=== PATIENT | female | born 1950 | race Caucasian/White ===

== ENCOUNTER 2017-10-20 06:41 | Inpatient (IN) | payer MEDICARE, OTHER, SELFPAY ==
[2017-10-20] VITALS (11 sets, daily range): BP systolic 138–155; BP diastolic 68–111; PULSE 76–102; RESP 16–20; TEMP 36.7–37.6; O2SAT 96–98; BMI 36.8; BMI 36.9
--- NOTE | 2017-10-20 06:59 | RAD_ITS ---
STUDY: X-RAY CHEST REASON FOR EXAM: Female, 67 years old. Productive cough since Monday TECHNIQUE: PA and lateral views of the chest. COMPARISON: None. FINDINGS: Lungs are expanded. Left lung is clear, there is subtle opacification the right lung base with an infiltrate noted in the right middle lobe best seen on the lateral view. No demonstrated effusion. Normal size heart. Normal mediastinum and tiffany. Normal visualized pulmonary arteries. Normal visualized aortic arch and descending thoracic aorta. Normal visualized thoracic spine. Normal visualized ribs, clavicles, and shoulders. There is no demonstrated abnormality of the visualized soft tissue structures of the upper abdomen. RAD/Chest PA and Lateral IMPRESSION: Right middle lobe infiltrate without effusion best seen on the lateral view. Follow-up recommended to assure resolution Electronically Signed: Matt Yun MD at 8:11 EDT , Service support ,
--- NOTE | 2017-10-20 07:03 | ED.DCSUM_ITS ---
- ER Visit Summary Date of Service: 10/20/17 Chief Complaint: Cough, fever History of Present Illness: The patient is a 67 F with above complaints for 4 days. She was started on Augmentin 2 days ago from an urgent care. She denies shortness of breath. She feels more weak. She noticed a fever this morning of 100 at home. She has no chest pain. No pleuritic component. No upper respiratory symptoms, rhinorrhea. She is able to ambulate and able to speak in full sentences. Physical Examination: Not appear in acute distress. Moist mucous membranes, no obvious facial deformity. There is postnasal drip and some rhinorrhea. No C-spine tenderness supple neck. Regular rate and rhythm without any obvious murmurs Lungs have coarse sounds mostly on the right, some bronchial breath sounds. She speaking in full sentences without difficulty. Abdomen soft and nontender no guarding or rebound Moves all extremities without any difficulty or pain. Skin does not show any obvious rashes or lesions, no trauma. Alert oriented ?3 with no gross focal deficit Emergency Department Course and Treatment: Patient is found to be febrile, I walked into the room, she was 90% and tachypneic when ambulated her oxygen was 89%, she has been treated for pneumonia at home, I did give her Levaquin in the emergency department I do believe she meets admission criteria. I called the hospitalist for admission. Impression: Immunity acquired pneumonia This note was generated with [employer] dictation software. It may contain incorrect words, spelling, and punctuation that were not noted in review of the chart prior to signing ED Disposition - Plan for ED Patient: Chief Complaint: General Illness Referrals: Meli Todd MD [Primary Care Provider] -
[2017-10-20] MEDS: Ipratropium/Albuterol Sulfate 3 ML AMPUL.NEB INHALATION ×3 (07:15→19:13)
[2017-10-20] MEDS: Ketorolac 15 MG/ML Vial IV (07:33)
[2017-10-20 07:40] LABS: Absolute Neutrophil Count 5.4 X10^3/uL (2.0-7.7); Basophil# 0.02 X10^3/uL; Basophil% 0.3 % (0-1); Eosinophil# 0.15 X10^3/uL; Eosinophils% 2.1 % (0-5); Hematocrit 38.1 % (37-47); Hemoglobin 12.2 g/dl (12.0-15.0); Lymphocyte % 13.8 % (19-41); Mean Corpuscular Hgb 27.1 pg (27.0-32.0); Mean Corpuscular Volume 84.5 fL (81-99); Mean Platelet Vol. 8.8 fl (6.2-12.0); Monocyte# 0.71 X10^3/uL; Monocyte% 9.8 % (0-10); Neutrophil # 5.35 X10^3/uL (2.7-7.7); Neutrophil % 73.9 % (47-70); Platelet Count 301 K/mm3 (150-450); RBC Distribution Width CV 15.1 % (11.6-14.6); Red Blood Count 4.51 M/mm3 (4.2-5.4); White Blood Count 7.2 K/mm3 (4.4-11.0)
[2017-10-20 07:42] LABS: POSITIVE COUNT NO; POSITIVE DIFFERENTIAL NO; POSITIVE MORPHOLOGY NO
[2017-10-20 07:50] LABS: ALB/GLOB Ratio 0.9 RATIO (0.9-2.4); AST(SGOT) 42 U/L (15-37); Alanine Aminotransfer ALT/SGPT 61 U/L (13-56); Albumin, Serum 3.7 g/dL (3.2-5.0); Alkaline Phosphatase 121 U/L (45-117); Anion Gap 10 (5-15); BUN 9 mg/dL (7-18); BUN/Creat Ratio 12.2 RATIO (10-20); Calcium,Total 8.8 mg/dL (8.5-10.1); Chloride 102 mmol/L (98-107); Creatinine, Serum 0.74 mg/dL (0.55-1.02); EST Glomerular Filtration Rate 83 mL/min (>60); Est Glom Filt Rate - Afr Amer 101 mL/min (>60); Estimated Creatinine Clearance 43.92 ml/min; Globulin 4.3 g/dL (2.2-4.2); Glucose 97 mg/dL (74-106); Potassium 3.8 mmol/L (3.5-5.1); Sodium Level 140 mmol/L (136-145)
--- NOTE | 2017-10-20 08:51 | NURSING ---
DR MILIAN CALLED BACK
[2017-10-20] MEDS: levoFLOXacin IV 750 MG/150 ML BAG 100 MG IV (09:15)
--- NOTE | 2017-10-20 09:33 | NURSING ---
MED SURG PNEUMONIA BRADLEY/RUKHSANA
[2017-10-20] MEDS: 0.9% Normal Saline 1,000 ML 100 ML IV ×2 (11:09→20:49)
[2017-10-20] MEDS: Heparin Injection (Vial) 5,000 UNIT/ML VIAL 5000 UNIT SC ×2 (11:09→20:50)
[2017-10-20] MEDS: Benzonatate 100 MG Capsule 200 MG PO ×2 (11:10→20:50)
[2017-10-20] MEDS: Pantoprazole Sodium 40 MG Tablet PO (11:10)
[2017-10-20] MEDS: guaiFENesin 1,200 MG Tablet 1200 MG PO ×2 (12:12→20:50)
--- NOTE | 2017-10-20 15:43 | HP.PCM_ITS ---
Problem List (1) Pneumonia Status: Acute Qualifiers: Laterality: right Lung location: middle lobe of lung (2) Seasonal rhinitis Status: Chronic (3) HTN (hypertension) Status: Chronic (4) GERD (gastroesophageal reflux disease) Status: Chronic History of Present Illness Date of Admission: 10/20/17 Chief Complaint: SOB The patient is a 67 year old F with a PMhx of HTN, GERD, who presents to the ER with c/c of SOB and cough. She has felt ill since Monday. She went to the urgent care and was placed on augmentin, albuterol, and tessalon perles. She unfortunately did not have any improvement. She felt progressively more SOB and continued to have a productive cough with chunky yellow green sputum. She is very fatigued. No hemoptysis. She reports 2 sick contacts - a mother of a child at her daycare has pna, and her grandson has pna. She feels feverish and her temp this AM was 100, prompting her to go to the ER. She was saturating 89% with ambulation in the ER and did not feel comfortable going home. CXR was c/w RML pna. She had some diarrhea yesterday. She has no nausea vomiting or aches. She has never had pna. She is a former smoker - quit in 1993, was a light smoker for 20 years. No asthma/copd. Takes cetirizine for seasonal allergies. [] Past Medical History Past Medical History (Chronic Problems): Chronic Problems Seasonal rhinitis (Chronic) HTN (hypertension) (Chronic) GERD (gastroesophageal reflux disease) (Chronic) Allergies tramadol Allergy (Verified 10/20/17 06:49) Other Home Medications: Ambulatory Orders Medication Instructions Recorded Albuterol Inhaler [Ventolin Hfa 1 puff INHALATION Q4H PRN PRN 10/20/17 (SP)] Amlodipine Besylate [Norvasc] 2.5 mg PO DAILY 10/20/17 Amoxicillin/Potassium Clav [Amox 1 each PO BID 10/20/17 Tr-K Clv 875-125 mg Tab] Benzonatate 200 mg PO TID PRN PRN 10/20/17 Calcium Carbonate [Calcium] 1,200 mg PO DAILY 10/20/17 Cetirizine HCl [Allergy] 10 mg PO DAILY 10/20/17 Cholecalciferol (Vitamin D3) 1,000 unit PO DAILY 10/20/17 [Vitamin D3] Fluticasone 0.05% [Flonase Nasal 1 spray NASAL DAILY 10/20/17 [place]] Multivitamin [Multiple Vitamins] 1 each PO DAILY 10/20/17 Omeprazole 40 mg PO DAILY 10/20/17 Surgical History: total knee arthroplasty, - - BL carpal tunnel release Psychiatric History: No pertinent psych hx 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 Denies: Chills, Weight Change HEENT: Denies: Head Aches, Sinus Congestion, Sinus Drainage Cardiovascular: Denies: Chest Pain, Palpitations Respiratory: Reports: Cough, Shortness of Breath, Shortness of breath at rest, Shortness of breath upon exertion, Sputum production. Denies: Hemoptysis, Pleuritic Pain Gastrointestinal: Reports: Diarrhea. Denies: Abdominal Pain, Nausea, Vomiting Genitourinary: Denies: Dysuria Musculoskeletal: Denies: Joint Pain, Joint Tenderness Skin: Denies: Rash, Wounds Neurological: Denies: Numbness, Tingling, Focal weakness Psychiatric: Denies: Anxiety, Depression, Homicidal Ideations, Suicidal Ideations Hematologic/ Lymphatic: Denies: Easy Bruising, Easy Bleeding VTE Information - Inpt Only VTE Present on Admission: No VTE Mechan Device Prophylaxis: None VTE Pharm Prophylaxis ordered?: Yes Patient Problems: Active and Suspected Problems Pneumonia (Acute) - Physical Exam General: Alert, Oriented x3, Cooperative HEENT: Atraumatic, PERRLA, EOMI, Normocephalic Neck: Supple, No JVD, Negative Carotid Bruits Lungs: Rales, Wheezes Cardiovascular: Regular rate, No murmurs Abdomen: Bowel Sounds Present, Soft, Non Tender Extremities: No edema, Capillary Refill Less than 3 Seconds Skin: No rashes, No breakdown Musculoskeletal: No Tenderness to Palpation of Joints or Extremities Neurological: Cranial nerves II-XII grossly intact Psych/Mental Status: Normal Affect, Appropriate, Alert and oriented to time, place, person, mood and affect Vital Signs Temp Pulse Resp BP Pulse Ox 98.4 F 84 18 138/87 H 98 10/20/17 14:58 10/20/17 14:58 10/20/17 14:58 10/20/17 14:58 10/20/17 14:58 Oxygen Flow Rate (L/min) 2 Oxygen Delivery Method Nasal Cannula Weight: 208 lb 1.862 oz Body Mass Index (BMI) 36.8 Intake and Output for Last 24 Hours 10/18/17 10/19/17 10/20/17 23:59 23:59 23:59 Intake Total 168 / 168 Output Total 200 / 200 Balance -32 / -32 Microbiology Past 72 Hours 10/20/17 10:40 Gram Stain - Final Sputum, Expectorated/Coughed 10/20/17 10:40 Respiratory Panel (PCR) - Final Mucosa - Nose 10/20/17 11:05 Streptococcus pneumoniae Antigen (M - Final Urine, Clean Catch 10/20/17 11:05 Legionella Antigen - Final Urine, Clean Catch Assessment/Plan All Active Problems Pneumonia (Acute) 1. Acute RML CAP - suspect streptococcal. CXR c/w RML pna. 2x sick contacts with pna. In ER no fever or WBC elevation. Check urine antigens, sputum cx, and resp panel. Wheezine and rales on exam. Failed augmentin. Continue IV levaquin. Continue aerosols, mucinex, tessalon perles. Former smoker. No Asthma/COPD. LFTs mildly elevated possibly 2/2 augmentin 2. HTN - norvasc 3. GERD - ppi. 4. Diarrhea - none today, possibly 2/2 augmentin. Add probiotic. DVT ppx: heparin DC planning: ambulate in AM This patient was seen by Gilles Qureshi PA-C under the supervision of Dr. Washington.
--- NOTE | 2017-10-20 16:35 | CASEMGMT ---
YANA CHEN Face to Face with patient for initial transition planning/care coordination assessment. YANA CHEN introduced self and role at [facility]. Patient lying in bed, alert and oriented. Patient willing to participate in assessment and is able to answer all questions appropriately. Care providers, pharmacy, and demographics verified. See link attached. Patient wishes to discharge home, denies need for home health at this time. Patient states she has no further needs or concerns at this time. Patient currently on oxygen, will monitor for need for home oxygen and assist with setup. CM to follow for discharge planning needs that may arise. Disposition Plan: Patient to discharge home with family support and follow-up plans in place.
[2017-10-20] MEDS: Acetaminophen 325 MG Tablet 650 MG PO (20:50)
[2017-10-21] MEDS: Ipratropium/Albuterol Sulfate 3 ML AMPUL.NEB INHALATION ×2 (02:31→07:28)
[2017-10-21 02:32] VITALS: PULSE 79; RESP 16
[2017-10-21 02:45] VITALS: BP 142/83; PULSE 76; RESP 18; TEMP 37.1; O2SAT 95
[2017-10-21] MEDS: 0.9% Normal Saline 1,000 ML 100 ML IV (05:47)
[2017-10-21] MEDS: Benzonatate 100 MG Capsule 200 MG PO (05:47)
[2017-10-21 06:36] LABS: Absolute Lymphocyte Count 1.33 X10^3/ul (0.83-4.51); Basophil# 0.02 X10^3/uL; Basophil% 0.3 % (0-1); Eosinophil# 0.17 X10^3/uL; Eosinophils% 2.8 % (0-5); Hematocrit 34.5 % (37-47); Hemoglobin 11.1 g/dl (12.0-15.0); Lymphocyte # 1.33 X10^3/ul (4.0); Lymphocyte % 21.5 % (19-41); Mean Corp Hgb Conc 32.2 g/gl (32-36); Mean Corpuscular Hgb 27.5 pg (27.0-32.0); Mean Corpuscular Volume 85.4 fL (81-99); Mean Platelet Vol. 8.9 fl (6.2-12.0); Monocyte% 11.3 % (0-10); Neutrophil # 3.95 X10^3/uL (2.7-7.7); Neutrophil % 63.9 % (47-70); Platelet Count 316 K/mm3 (150-450); RBC Distribution Width SD 46.1 fl (35.1-43.9); Red Blood Count 4.04 M/mm3 (4.2-5.4); White Blood Count 6.2 K/mm3 (4.4-11.0)
[2017-10-21 06:37] LABS: POSITIVE COUNT NO; POSITIVE DIFFERENTIAL NO; POSITIVE MORPHOLOGY NO
[2017-10-21 07:28] VITALS: PULSE 75; RESP 16
--- NOTE | 2017-10-21 07:52 | RAD_ITS ---
STUDY: X-RAY CHEST REASON FOR EXAM: Female, 67 years old. SOB / SOA TECHNIQUE: Frontal and lateral views of the chest. COMPARISON: Study done yesterday. FINDINGS: Chronic appearing increased interstitial lung markings. Stable nodularity in the right lower lobe. This may be a nipple shadow. There is no demonstrated pleural abnormality. Streaky density in the right lower lobe has improved. Normal heart size. Normal mediastinum and tiffany. Normal visualized pulmonary arteries. There is atherosclerotic calcification of the aortic arch with tortuosity. There are diffuse degenerative changes of the visualized thoracic spine. There is degenerative osteoarthritis of the bilateral shoulders. There is no demonstrated abnormality of the visualized soft tissue structures of the upper abdomen. RAD/Chest PA and Lateral IMPRESSION: Stable nodularity in the right lower lobe. This may be a nipple shadow. Streaky density in the right lower lobe has improved. Electronically Signed: Nagi Hemphill MD at 8:37 EDT , Service support ,
[2017-10-21 08:09] VITALS: BP 149/84; PULSE 84; RESP 16; TEMP 36.7; O2SAT 96
[2017-10-21] MEDS: Pantoprazole Sodium 40 MG Tablet PO (08:24)
[2017-10-21] MEDS: guaiFENesin 1,200 MG Tablet 1200 MG PO (08:24)
[2017-10-21] MEDS: amLODIPine 2.5 MG Tablet PO (08:24)
--- NOTE | 2017-10-21 09:59 | PCM.DC ---
- Discharge Diagnoses Current Active Problems: Current Active and Chronic Problems Pneumonia (Acute) Seasonal rhinitis (Chronic) HTN (hypertension) (Chronic) GERD (gastroesophageal reflux disease) (Chronic) You will use the following diet at home:: No restrictions Your food should be the consistency of: Regular Your liquids should be the consistency of: Regular/Thin Discharge Activity: Return to Normal Activity Allergies/Adverse Reactions: Allergies tramadol Allergy (Verified 10/20/17 06:49) Other Medications to take at Discharge Amlodipine Besylate [Norvasc] 2.5 mg PO DAILY 10/20/17 Benzonatate 200 mg PO TID PRN PRN 10/20/17 Calcium Carbonate [Calcium] 1,200 mg PO DAILY 10/20/17 Cetirizine HCl [Allergy] 10 mg PO DAILY 10/20/17 Cholecalciferol (Vitamin D3) [Vitamin D3] 1,000 unit PO DAILY 10/20/17 Fluticasone 0.05% [Flonase Nasal [place]] 1 spray NASAL DAILY 10/20/17 Multivitamin [Multiple Vitamins] 1 each PO DAILY 10/20/17 Omeprazole 40 mg PO DAILY 10/20/17 Albuterol Inhaler [Ventolin Hfa] 1 puff INHALATION [id number] #1 inhaler 10/21/17 Guaifenesin [Mucinex] 1,200 mg PO BID tablet 10/21/17 Levofloxacin [Levaquin] 500 mg PO DAILY #6 tab 10/21/17 Pantoprazole Sodium [Protonix] 40 mg PO DAILY tablet 10/21/17 The following prescriptions were given: Levofloxacin [Levaquin] 500 mg PO DAILY #6 tab Albuterol Inhaler [Ventolin Hfa] 1 puff INHALATION [id number] #1 inhaler Primary Care Physician: Meli Todd MD [Primary Care Provider] - Please follow up with your Primary Care Physician in: next or Monday Test Results: Test results from this visit will be discussed in further detail at your follow-up appointment, if applicable.
[2017-10-21] MEDS: Heparin Injection (Vial) 5,000 UNIT/ML VIAL 5000 UNIT SC (10:01)
[2017-10-21 12:09] VITALS: BP 151/94; PULSE 74; RESP 17; TEMP 36.8; O2SAT 95
--- NOTE | 2017-10-21 13:22 | PCM.DC.SUM ---
Discharge Date and Diagnosis Date of Admission: 10/20/17 Date of Discharge: 10/21/17 - Primary Discharge Diagnosis Acute CAP RML suspect gram positive HTN GERD - Secondary Discharge Diagnosis Chronic Problems Seasonal rhinitis (Chronic) HTN (hypertension) (Chronic) GERD (gastroesophageal reflux disease) (Chronic) Hospital Course and Treatment Imaging Results: RAD/Chest PA and Lateral IMPRESSION: Stable nodularity in the right lower lobe. This may be a nipple shadow. Streaky density in the right lower lobe has improved. RAD/Chest PA and Lateral IMPRESSION: Right middle lobe infiltrate without effusion best seen on the lateral view. Follow-up recommended to assure resolution Operations: None Procedures: None Summary of Care Provided: Physical exam on day of discharge: General: Resting comfortably NAD Psych: A/Ox3 normal affect HEENT: PEARRLA AT NC Neck: Supple NT CV: RRR no m/t/r/g/h Resp: Posterior rales right side. Abd: [id number] Soft NT no guarding or rigidity, obesity Ext: DP2+= no edema Skin: W/D normal turgor Lymph/Heme: No active bleeding or adenopathy Neuro: CN2-12 intact Hospital course: The patient is a 67 year old F with a hx of htn, GERD, who presented to the ER with increased cough and SOB. She was treated with Abx via urgent care for 2 days with augmentin and had no improvement. In the ER she had a cxr c/w RML pna, however no fever or leukocytosis. She did desat to 89% on walking and the decision was made to admit. She was placed on levaquin and admitted to the med surg floor. She was provided mucinex and aerosols. She had negative sputum culture, respiratory panel, and urine antigens. The following morning she was much improved. CXR was improved the following morning. She was discharged on oral levaquin and albuterol and will need to follow up with her PCP. This patient was seen by Gilles Qureshi PA-C under the supervision of Doctor Washington. [] Discharge Diet: Low fat/ Low Cholesterol, 2000 mg Sodium Diet Discharge Activity: Return to Normal Activity Home Medications: Medications to take at Discharge Amlodipine Besylate [Norvasc] 2.5 mg PO DAILY 10/20/17 Benzonatate 200 mg PO TID PRN PRN 10/20/17 Calcium Carbonate [Calcium] 1,200 mg PO DAILY 10/20/17 Cetirizine HCl [Allergy] 10 mg PO DAILY 10/20/17 Cholecalciferol (Vitamin D3) [Vitamin D3] 1,000 unit PO DAILY 10/20/17 Fluticasone 0.05% [Flonase Nasal [place]] 1 spray NASAL DAILY 10/20/17 Multivitamin [Multiple Vitamins] 1 each PO DAILY 10/20/17 Omeprazole 40 mg PO DAILY 10/20/17 Albuterol Inhaler [Ventolin Hfa] 1 puff INHALATION [id number] #1 inhaler 10/21/17 Guaifenesin [Mucinex] 1,200 mg PO BID tablet 10/21/17 Levofloxacin [Levaquin] 500 mg PO DAILY #6 tab 10/21/17 Pantoprazole Sodium [Protonix] 40 mg PO DAILY tablet 10/21/17 Following Prescrptions Were Given to Patient: Albuterol Inhaler [Ventolin Hfa] 1 puff INHALATION [id number] #1 inhaler Levofloxacin [Levaquin] 500 mg PO DAILY #6 tab Primary Care Physician: Meli oTdd MD [Primary Care Provider] - Please follow up with your Primary Care Physician in: next or Monday Disposition: Home Minutes spent on discharge:: 35 Patient Condition:: Stable Medical Necessity - Tobacco Use Smoking Status: Former smoker Tobacco Use: Non-smoker Meaningful Use Info Meaningful Use Diagnoses (Choose all that apply): None applicable
--- NOTE | 2017-10-21 13:26 | DS.PCM_ITS ---
Discharge Date and Diagnosis Date of Admission: 10/20/17 Date of Discharge: 10/21/17 - Primary Discharge Diagnosis Acute CAP RML suspect gram positive HTN GERD - Secondary Discharge Diagnosis Chronic Problems Seasonal rhinitis (Chronic) HTN (hypertension) (Chronic) GERD (gastroesophageal reflux disease) (Chronic) Hospital Course and Treatment Imaging Results: RAD/Chest PA and Lateral IMPRESSION: Stable nodularity in the right lower lobe. This may be a nipple shadow. Streaky density in the right lower lobe has improved. RAD/Chest PA and Lateral IMPRESSION: Right middle lobe infiltrate without effusion best seen on the lateral view. Follow-up recommended to assure resolution Operations: None Procedures: None Summary of Care Provided: Physical exam on day of discharge: General: Resting comfortably NAD Psych: A/Ox3 normal affect HEENT: PEARRLA AT NC Neck: Supple NT CV: RRR no m/t/r/g/h Resp: Posterior rales right side. Abd: [id number] Soft NT no guarding or rigidity, obesity Ext: DP2+= no edema Skin: W/D normal turgor Lymph/Heme: No active bleeding or adenopathy Neuro: CN2-12 intact Hospital course: The patient is a 67 year old F with a hx of htn, GERD, who presented to the ER with increased cough and SOB. She was treated with Abx via urgent care for 2 days with augmentin and had no improvement. In the ER she had a cxr c/w RML pna , however no fever or leukocytosis. She did desat to 89% on walking and the decision was made to admit. She was placed on levaquin and admitted to the med surg floor. She was provided mucinex and aerosols. She had negative sputum culture, respiratory panel, and urine antigens. The following morning she was much improved. CXR was improved the following morning. She was discharged on oral levaquin and albuterol and will need to follow up with her PCP. This patient was seen by Gilles Qureshi PA-C under the supervision of Doctor Washington. [] Discharge Diet: Low fat/ Low Cholesterol, 2000 mg Sodium Diet Discharge Activity: Return to Normal Activity Home Medications: Medications to take at Discharge Amlodipine Besylate [Norvasc] 2.5 mg PO DAILY 10/20/17 Benzonatate 200 mg PO TID PRN PRN 10/20/17 Calcium Carbonate [Calcium] 1,200 mg PO DAILY 10/20/17 Cetirizine HCl [Allergy] 10 mg PO DAILY 10/20/17 Cholecalciferol (Vitamin D3) [Vitamin D3] 1,000 unit PO DAILY 10/20/17 Fluticasone 0.05% [Flonase Nasal [place]] 1 spray NASAL DAILY 10/20/17 Multivitamin [Multiple Vitamins] 1 each PO DAILY 10/20/17 Omeprazole 40 mg PO DAILY 10/20/17 Albuterol Inhaler [Ventolin Hfa] 1 puff INHALATION [id number] #1 inhaler Guaifenesin [Mucinex] 1,200 mg PO BID tablet 10/21/17 Levofloxacin [Levaquin] 500 mg PO DAILY #6 tab 10/21/17 Pantoprazole Sodium [Protonix] 40 mg PO DAILY tablet 10/21/17 Following Prescrptions Were Given to Patient: Albuterol Inhaler [Ventolin Hfa] 1 puff INHALATION [id number] #1 inhaler Levofloxacin [Levaquin] 500 mg PO DAILY #6 tab Primary Care Physician: Meli Todd MD [Primary Care Provider] - Please follow up with your Primary Care Physician in: next or Monday Disposition: Home Minutes spent on discharge:: 35 Patient Condition:: Stable Medical Necessity - Tobacco Use Smoking Status: Former smoker Tobacco Use: Non-smoker Meaningful Use Info Meaningful Use Diagnoses (Choose all that apply): None applicable
== END 2017-10-21 13:00 | disposition home or self-care (01) | DRG 195 ==
LOC: ED 07:26 → MS3 09:55
PROVIDERS: Admitting Provider Internal Medicine; Emergency Provider Emergency Medicine; Family Provider Internal Medicine; PCP Internal Medicine; Visit Provider Internal Medicine
DX: J15.9 Unspecified bacterial pneumonia (principal); R09.02 Hypoxemia; I10 Essential (primary) hypertension; J31.0 Chronic rhinitis; K21.9 Gastro-esophageal reflux disease without esophagitis; Z79.899 Other long term (current) drug therapy; Z96.659 Presence of unspecified artificial knee joint; Z87.891 Personal history of nicotine dependence
CPT/HCPCS: 36415; 71046; 80053; 85025; 87070; 87205; 87449; 87633; 94640; 99251; 99284; J7030; J7040; J7050; G0463

== ENCOUNTER 2022-05-08 10:17 | Emergency (ER) | payer MEDICARE, OTHER, SELFPAY ==
[2022-05-08 10:18] VITALS: BP 152/71; PULSE 95; RESP 18; TEMP 36.7; O2SAT 98; BMI 34.3
--- NOTE | 2022-05-08 10:57 | EDS_ITS ---
HPI History of Present Illness Chief Complaint: General Illness Informant: patient Narrative Narrative: Presents referred in here by telehealth. Patient postop elective left total hip arthroplasty performed by Dr. Upton from [facility]. Been home do ing well with a walker oxycodone as needed she is on aspirin 81 mg twice daily for DVT prophylaxis. Reports was hospitalized overnight. Using incentive spirometer yesterday mild scratchy throat cough started evening. This morning home COVID test was positive. Patient is vaccinated with boosters no COVID infections in the past. Approximately 3 weeks ago her had COVID who finished Paxlovid, he had residual congestion. She did a home COVID prior to her surgery that was negative.No cardiac history no lung history. History of hypertension. Due to her recent surgery and hypertension after speaking with telehealth she was referred to the ED for evaluation. She denies any dyspnea. Denies vomiting or diarrhea. Denies any loss of taste or smell. Prior similar symptoms: No PFSH PFSH Home Medications amlodipine 2.5 mg tablet (Norvasc) 2.5 mg PO DAILY BP 10/20/17 [History Last Taken 10/20/17] benzonatate 200 mg capsule 200 mg PO TID PRN PRN Cough 10/20/17 [History Last Taken Unknown] calcium carbonate 600 mg calcium (1,500 mg) tablet 1,200 mg PO DAILY SUPPLEMENT 10/20/17 [History Last Taken Unknown] cetirizine 10 mg tablet (Allergy Relief (cetirizine)) 10 mg PO DAILY ALLERGY 10/20/17 [History Last Taken Unknown] cholecalciferol (vitamin D3) 25 mcg (1,000 unit) capsule (Vitamin D3) 1,000 unit PO DAILY SUPPLEMENT 10/20/17 [History Last Taken Unknown] fluticasone propionate 50 mcg/actuation nasal spray,suspension 1 spray DAILY ALLERGIES 10/20/17 [History Last Taken Unknown] multivitamin (Multiple Vitamins tablet) 1 ea PO DAILY SUPPLEMENT 10/20/17 [History Last Taken Unknown] omeprazole 40 mg capsule,delayed release 40 mg PO DAILY GERD 10/20/17 [History Last Taken Unknown] albuterol sulfate 90 mcg/actuation aerosol inhaler (Ventolin HFA) 1 puff inhalation [id number] ##1 10/21/17 [Rx Last Taken Unknown] guaifenesin 1,200 mg tablet, extended release 12 hr (Mucus Relief ER) 1,200 mg PO BID 10/21/17 [Rx Last Taken Unknown] levofloxacin 500 mg tablet 500 mg PO DAILY #6 tabs 10/21/17 [Rx Last Taken Unknown] pantoprazole 40 mg tablet,delayed release 40 mg PO DAILY 10/21/17 [Rx Last Taken Unknown] nirmatrelvir 300 mg (150 mg x2)-ritonavir 100 mg tablet,dose pack(EUA) (Paxlovid) See Rx Instructions PO .COMPLEX #30 tabs 05/08/22 [Rx Last Taken Unknown] Allergy/AdvReac Type Severity Reaction Status Date / Time levofloxacin [From Levaquin] Allergy Other Verified 05/08/22 10:21 tramadol Allergy Other Verified 05/08/22 10:21 Social History Smoking Status: Unknown if ever smoked ROS ROS ED Constitutional Constitutional ED: Denies chills, fever(s) or sweats Eyes Eyes: Denies change in vision ENT ENT ED: Denies dysphagia or sore throat Cardiovascular Cardiovascular: Denies chest pain, leg edema, palpitations or racing heartbeat Respiratory/Chest Respiratory/Chest: Reports cough; Denies dyspnea or dyspnea on exertion Gastrointestinal Gastrointestinal: Denies abdominal pain, diarrhea, nausea or vomiting Genitourinary Genitourinary ED: Denies dysuria, hematuria or urinary frequency Musculoskeletal Musculoskeletal: Denies back pain, extremity pain or neck pain Integumentary Denies rash or wounds Neurologic Neurologic: Denies headache(s), paresthesias or weakness EXAM Physical Exam Const Vital Signs: 05/08/22 10:18 05/08/22 11:44 Temperature 98.1 F Temperature Source Temporal Pulse Rate 95 Respiratory Rate 18 Respiratory Effort Normal Non-Labored Blood Pressure 152/71 H Blood Pressure Mean 98 Pulse Ox 98 Oxygen Delivery Method Room Air Positive well nourished and well developed General Appearance ED: well developed and NAD HEENT Reports moist mucous membranes normocephalic and atraumatic Eyes PERRL, EOMs intact bilaterally and conjunctivae normal General Eye ED: Yes normal appearance of both eyes Neck no lymphadenopathy and supple General: Negative for tenderness Chest Wall Chest: Negative for tenderness Resp normal respiratory effort and normal air movement Effort and Inspection: symmetric chest movement; Negative for respiratory dist ress Cardio regular rate, regular rhythm and no murmurs Peripheral Pulses: pulses 2+ throughout GI normal to inspection, nondistended, normoactive bowel sounds and non-tender Palpation: Negative for guarding or rebound tenderness present Back/Spine no CVA tenderness and no thoracic nor lumbar tenderness Extremity normal to inspection General Extremety ED: Negative for edema or tenderness General Extremity: Negative for edema Neuro oriented x3 and no sensory deficits noted Sensorium / Orientation: awake and alert Skin no rashes or lesions noted and no wounds Skin Narrative: Dressing on the anterior aspect of left hip clean, dry, intact. MDM MDM MDM Narrative Medical decision making narrative: Interventions / MDM: Differential diagnosis:COVID-19 infection, viral syndrome Diagnosis considered but do not suspect: Pulmonary embolism, however no dyspnea My EKG interpretation: N/A Imaging independently reviewed and interpreted by myself: N/A External documents reviewed: N/A Test considered but not ordered:N/A ED course: Patient vital signs are stable no respiratory distress. Denies dyspnea symptoms. She is postop she is on aspirin twice daily for prophylaxis. Without dyspnea symptoms lower concerns for PE. Home COVID was positive she has no kidney issues. She has hypertension history and her age discussed starting on antivirals for which she agreed her did not have any complications side effects discussed with the patient. Return precaution discussed. All questions were answered. Re-evaluation: stable and improved Disposition discussed with patient/family/significant other: Patient Case discussed with consulting clinician: N/A Discharge Plan Triage Chief Complaint: General Illness ED Provider: Ned Eng Dx/Rx/DC Orders Clinical Impression: COVID-19 virus infection, Sinus congestion, Cough Instructions: Coronavirus Disease 2019 (COVID-19): Caring for Yourself or Others Prescriptions: New Paxlovid (EUA) 300 mg (150 mg x 2)-100 mg tablets,dose pack See Rx Instructions .ROUTE .COMPLEX Qty: 30 0RF Rx Instructions: take TWO 150 mg tablets of nirmatrelvir with ONE 100 mg tablet of ritonavir twice daily for 5 days No Action amlodipine [Norvasc] 2.5 MG tablet 2.5 mg PO DAILY cetirizine [Allergy Relief (cetirizine)] 10 MG tablet 10 mg PO DAILY benzonatate 200 MG capsule 200 mg PO TID PRN PRN (Reason: Cough) omeprazole 40 MG capsule,delayed release(DR/EC) 40 mg PO DAILY fluticasone propionate 1 SPRAY spray,suspension 1 spray NASAL DAILY multivitamin [Multiple Vitamins] 1 EACH tablet 1 ea PO DAILY calcium carbonate 600 MG tablet 1,200 mg PO DAILY cholecalciferol (vitamin D3) [Vitamin D3] 1,000 UNIT capsule 1,000 unit PO DAILY pantoprazole 40 MG tablet 40 mg PO DAILY 0RF guaifenesin [Mucus Relief ER] 1,200 MG tablet 1,200 mg PO BID 0RF levofloxacin 500 MG tablet 500 mg PO DAILY Qty: 6 0RF Rx Instructions: start 10/21/17 albuterol sulfate [Ventolin HFA] 1 INHALER inhaler 1 puff inhalation [id number] Qty: 1 0RF Primary Care Provider: Meli Todd Referrals: Meli Todd MD [Primary Care Provider] - 1 Week if not improving Activity Restrictions/Additional Instructions: Take medication as prescribed. Monitor symptoms. Return for any worsening symptoms. Disposition Disposition: Home, Self Care Discharge Date/Time: 05/08/22 11:58
== END 2022-05-08 11:58 | disposition home or self-care (01) ==
LOC: ED 11:13
PROVIDERS: Emergency Provider Emergency Medicine; PCP Internal Medicine; Visit Provider Emergency Medicine
DX: U07.1 COVID-19 (principal); I10 Essential (primary) hypertension; Z96.642 Presence of left artificial hip joint; Z98.890 Other specified postprocedural states; R09.81 Nasal congestion
CPT/HCPCS: 99282

== ENCOUNTER 2022-05-16 10:44 | Emergency (ER) | payer MEDICARE, OTHER, SELFPAY ==
[2022-05-16 10:46] VITALS: BP 154/92; PULSE 94; RESP 16; TEMP 37.6; O2SAT 97; BMI 35.8
--- NOTE | 2022-05-16 10:59 | VDLE_ITS ---
Reason For Study: pain Procedure LEFT This is a venous duplex using B-mode, color GSV is normal. flow and spectral Doppler. CFV is compressible, spontaneous, phasic, Exam performed portable in ED. competent, and demonstrates normal The exam was abbreviated due to the COVID 19 augmentation. protocol. FV is compressible, spontaneous, phasic, The exam was diagnostic. competent and demonstrates normal A preliminary report was called and/or faxed augmentation. to Dr. Bravo. POP V is compressible, spontaneous, phasic, competent and demonstrates normal augmentation. T/P Trunk is compressible. PTV is compressible. LT PerV is compressible. VL/Venous Duplex US, Unilateral Interpretation Summary Deep veins of the left lower extremity are patent and compressible segmentally. There is no evidence of left lower extremity deep vein thrombosis. Valvular competence appears intac t within the proximal deep venous system on the left . The left great saphenous vein appears patent a nd compressible segmentally. Ordering Physician: Sarmad Bravo Performed By: Jamin Mendoza RVT
--- NOTE | 2022-05-16 11:00 | ED.VIS.LOWEX ---
HPI History of Present Illness Chief Complaint: Lower Extremity Injury Detail of Chief Complaint: Atraumatic left calf pain and swelling Informant: patient Onset/Context/Timing Onset: Yesterday Context: Sudden Onset Timing: Continuous Quality of Pain: Dull and Aching Location: Left calf Current Severity: Mild Maximum Severity: Moderate Worsened by: Palpation Relieved by: Nothing Associated Symptoms Associated Symptoms: Negative for Parasthesia, Weakness or Loss of Funtion Narrative Narrative: Patient is a 70-year-old woman status post total hip arthroplasty by Dr. Jesus Alberto Upton less than 1 month ago. She was diagnosed with COVID recently. She was placed on Paxlovid. She has had a rebound. She presents with atraumatic left calf pain, swelling discoloration. She noted a discolored area on her calf as well. She denies shortness of breath compared to baseline. She denies pleuritic chest pain. She denies prior history of DVT. She denies fever or chills. She does report mild congestion and cough. She denies GI symptoms. She is not on antithrombotic or antiplatelet medicine. Tetanus Immunization: 5-10 years Prior similar symptoms: No PFSH PFSH Home Medications amlodipine 2.5 mg tablet (Norvasc) 2.5 mg PO DAILY BP 10/20/17 [History Last Taken 10/20/17] benzonatate 200 mg capsule 200 mg PO TID PRN PRN Cough 10/20/17 [History Last Taken Unknown] calcium carbonate 600 mg calcium (1,500 mg) tablet 1,200 mg PO DAILY SUPPLEMENT 10/20/17 [History Last Taken Unknown] cetirizine 10 mg tablet (Allergy Relief (cetirizine)) 10 mg PO DAILY ALLERGY 10/20/17 [History Last Taken Unknown] cholecalciferol (vitamin D3) 25 mcg (1,000 unit) capsule (Vitamin D3) 1,000 unit PO DAILY SUPPLEMENT 10/20/17 [History Last Taken Unknown] fluticasone propionate 50 mcg/actuation nasal spray,suspension 1 spray DAILY ALLERGIES 10/20/17 [History Last Taken Unknown] multivitamin (Multiple Vitamins tablet) 1 ea PO DAILY SUPPLEMENT 10/20/17 [History Last Taken Unknown] omeprazole 40 mg capsule,delayed release 40 mg PO DAILY GERD 10/20/17 [History Last Taken Unknown] albuterol sulfate 90 mcg/actuation aerosol inhaler (Ventolin HFA) 1 puff inhalation [id number] ##1 10/21/17 [Rx Last Taken Unknown] guaifenesin 1,200 mg tablet, extended release 12 hr (Mucus Relief ER) 1,200 mg PO BID 10/21/17 [Rx Last Taken Unknown] levofloxacin 500 mg tablet 500 mg PO DAILY #6 tabs 10/21/17 [Rx Last Taken Unknown] pantoprazole 40 mg tablet,delayed release 40 mg PO DAILY 10/21/17 [Rx Last Taken Unknown] nirmatrelvir 300 mg (150 mg x2)-ritonavir 100 mg tablet,dose pack(EUA) (Paxlovid) See Rx Instructions PO .COMPLEX #30 tabs 05/08/22 [Rx Last Taken Unknown] Allergy/AdvReac Type Severity Reaction Status Date / Time levofloxacin [From Levaquin] Allergy Other Verified 05/16/22 10:48 tramadol Allergy Other Verified 05/16/22 10:48 Social History (Updated 05/16/22 @ 11:[address] Sarmad Bravo MD) household members: none Smoking Status: Unknown if ever smoked substance use type: does not use ROS ROS ED Constitutional Constitutional ED: Denies chills, fever(s), subjective, sweats or weight loss Eyes Eyes: Denies blurry vision, change in vision or diplopia ENT ENT ED: Denies ear pain, rhinorrhea or sore throat Cardiovascular Cardiovascular: Denies chest pain, orthopnea, palpitations, paroxysmal nocturnal dyspnea or racing heartbeat Respiratory/Chest Respiratory/Chest: Denies cough, dyspnea, dyspnea on exertion, orthopnea or paroxysmal nocturnal dyspnea Musculoskeletal Musculoskeletal: Denies arthralgias, back pain, myalgias or neck pain Integumentary Denies Abrasions or rash Neurologic Neurologic: Denies weakness Hematologic/Lymphatic Hematologic/Lymphatic: Denies easy bleeding or easy bruising EXAM Physical Exam Const Vital Signs: 05/16/22 10:46 Temperature 99.7 F H Temperature Source Temporal Pulse Rate 94 Respiratory Rate 16 Blood Pressure 154/92 H Blood Pressure Mean 112 Pulse Ox 97 Oxygen Delivery Method Room Air Positive well nourished, well developed and obese General Appearance ED: well developed and NAD Nutritional Appearance: obese HEENT Reports moist mucous membranes normocephalic and atraumatic Eyes PERRL Eyes Narrative: Extract muscles are intact. Neck full ROM and supple Chest Wall inspection of chest normal and palpation of chest normal Resp normal respiratory effort, no retractions and clear to auscultation bilaterally Cardio regular rate, regular rhythm, S1 normal heart sound, S2 normal heart sound and no murmurs GI non-tender, non-distended and no masses Extremity Negative for normal to inspection Extremity Narrative: The left lower extremity is swollen compared to the right by 3 cm at the calf. There is tenderness along the distribution deep venous system popliteal to distal third of the calf. There is no leg vein distention. There is no palpable cords. Neuro oriented x3, CN's II-XII intact bilaterally, moves all extremities and no sensory deficits noted Sensorium / Orientation: alert Psych mental status grossly normal Skin Skin Narrative: There is a small bruise noted left calf Lesions: no lesions Rashes: no rashes MDM MDM MDM Narrative Medical decision making narrative: Per the Wells score for DVT patient has high pretest probability; therefore, will obtain venous duplex study to evaluate for DVT. Her risk factors are recent COVID, recent total hip arthroplasty. Radiography Diagnostic Testing: Venous duplex study per the tech was negative for clot. Patient was discharged home with appropriate home-going instructions Discharge Plan Triage Chief Complaint: Lower Extremity Injury ED Provider: Sarmad Bravo Dx/Rx/DC Orders Clinical Impression: Acute pain of left lower extremity, COVID-19 virus infection, S/P total left hip arthroplasty, Edema of left lower extremity, History of hypertension Instructions: ED Lymphedema, ED Pain, Acute, Uncertain Cause Prescriptions: No Action amlodipine [Norvasc] 2.5 MG tablet 2.5 mg PO DAILY cetirizine [Allergy Relief (cetirizine)] 10 MG tablet 10 mg PO DAILY benzonatate 200 MG capsule 200 mg PO TID PRN PRN (Reason: Cough) omeprazole 40 MG capsule,delayed release(DR/EC) 40 mg PO DAILY fluticasone propionate 1 SPRAY spray,suspension 1 spray NASAL DAILY multivitamin [Multiple Vitamins] 1 EACH tablet 1 ea PO DAILY calcium carbonate 600 MG tablet 1,200 mg PO DAILY cholecalciferol (vitamin D3) [Vitamin D3] 1,000 UNIT capsule 1,000 unit PO DAILY pantoprazole 40 MG tablet 40 mg PO DAILY 0RF guaifenesin [Mucus Relief ER] 1,200 MG tablet 1,200 mg PO BID 0RF levofloxacin 500 MG tablet 500 mg PO DAILY Qty: 6 0RF Rx Instructions: start 10/21/17 albuterol sulfate [Ventolin HFA] 1 INHALER inhaler 1 puff inhalation [id number] Qty: 1 0RF Paxlovid (EUA) 300 mg (150 mg x 2)-100 mg tablets,dose pack See Rx Instructions .ROUTE .COMPLEX Qty: 30 0RF Rx Instructions: take TWO 150 mg tablets of nirmatrelvir with ONE 100 mg tablet of ritonavir twice daily for 5 days Primary Care Provider: Meli Todd Referrals: Willie Upton MD [Non-Staff] - Keep Aliya appointment Meli Todd MD [Primary Care Provider] - 3-5 Days if not improving Disposition Disposition: Home, Self Care
== END 2022-05-16 12:58 | disposition home or self-care (01) ==
PROVIDERS: Emergency Provider Emergency Medicine; PCP Internal Medicine; Visit Provider Emergency Medicine
DX: M79.662 Pain in left lower leg (principal); R60.0 Localized edema; M79.605 Pain in left leg; U07.1 COVID-19; I10 Essential (primary) hypertension; Z96.642 Presence of left artificial hip joint
CPT/HCPCS: 93971; 99282